=== PATIENT | male | born 1980 | race American Indian/Alaskan Native ===

== ENCOUNTER 2022-07-01 14:46 | Emergency (ER) | payer SELFPAY ==
[2022-07-01] MEDS ORDERED: LIDOCAINE-MPF (1%) 10 MG/1 ML VIAL 5 ML INFILTRATI ONE (15:31)
--- NOTE | 2022-07-01 15:31 | Emergency Department Report ---
ED Dysuria HPI - HPI Chief Complaint: Urogenital-Male Stated Complaint: STD TREATMENT Time Seen by Provider: 07/01/22 15:26 Duration: 3 Days Location of Discomfort: Urethra (dysuria) Severity: Mild Symptoms: Dysuria: Yes, Frequency: No, Suprapubic Pain: No, Flank Pain: No, Fever: No, Hematuria: No, Abdominal Pain: No, Previous UTI's: No Other History: 42 YO WITH KNOWN EXPOSURE TO GC- WITH PENILE DC COMES TO ER. VSS. NO ABD PAIN. NO BACK PAIN. NO FEVER. NO TESTICULAR PAIN ED Review of Systems ROS: Stated complaint: STD TREATMENT Other details as noted in HPI Comment: All other systems reviewed and negative ED Past Medical Hx - Past Medical History Previous Medical History?: No - Surgical History Past Surgical History?: No - Family History Family history: no significant - Social History Smoking Status: Never Smoker Substance Use Type: None - Medications Home Medications: Home Medications Medication Instructions Recorded Confirmed Last Taken Type Azithromycin [Zithromax Z-ERIC] 1,000 mg PO ONCE #4 07/01/22 Unknown Rx metroNIDAZOLE [Flagyl] 500 mg PO ONCE #4 tab 07/01/22 Unknown Rx Dysuria Exam - Exam General: Vital signs noted. No distress. Alert and acting appropriately. Exam: Yes Moist Mucous Membranes, No CVA Tenderness, No Abdominal Tenderness, No Rigidity or Guarding ED Course Vital Signs 07/01/22 14:58 Temperature 98.9 F Pulse Rate 89 Respiratory 18 Rate Blood Pressure 148/82 O2 Sat by Pulse 98 Oximetry ED Medical Decision Making - Medical Decision Making Vital Signs 07/01/22 14:58 Temperature 98.9 F Pulse Rate 89 Respiratory 18 Rate Blood Pressure 148/82 O2 Sat by Pulse 98 Oximetry EMPIRIC TX FOR STD EDUCATED ON SAFE SEX DC HOME WITH DC PLAN OF CARE AND RX FOR FLAGYL AND AZITHRO. HE VERBALIZES UNDERSTANDING OF PLAN OF CARE. - Differential Diagnosis gonorhea exposure Critical care attestation.: If time is entered above; I have spent that time in minutes in the direct care of this critically ill patient, excluding procedure time. ED Disposition Clinical Impression: Acute GC infection upper Disposition: HOME / SELF CARE / HOMELESS Is pt being admited?: No Does the pt Need Aspirin: No Condition: Stable Instructions: Gonorrhea Additional Instructions: safe sex follow up with pcp referral below Prescriptions: metroNIDAZOLE [Flagyl] 500 mg PO ONCE #4 tab Azithromycin [Zithromax Z-ERIC] 1,000 mg PO ONCE #4 Referrals: MITCHEL DUBON MD [Staff Physician] - 3-5 Days Time of Disposition: 15:33
[2022-07-01 16:43] VITALS: BP 151/94
== END 2022-07-01 16:44 | disposition home or self-care (01) ==
LOC: ED 14:46
DX: A54.29 Other gonococcal genitourinary infections (principal)
CPT/HCPCS: 96372; 99282; J0696; J3490